=== PATIENT | female | born 1980 | race Caucasian/White ===

== ENCOUNTER → 2024-03-22 10:23 | Outpatient (CLI) | payer OTHER, SELFPAY ==
--- NOTE | 2024-03-22 | DI.US.S_ITS ---
PROCEDURE: US PELVIC COMPLETE INDICATIONS: Abnormal uterine and vaginal bleeding, unspecified TECHNIQUE: Real-time scanning was performed of the pelvic organs, with image documentation. Additional endovaginal scanning was necessary due to incomplete visualization of the adnexal and endometrial structures by transabdominal scanning. COMPARISON: None. FINDINGS: Uterus: Uterus is anteverted and normal in size at 7.7 x 3.8 x 5.1 cm. The myometrium is heterogeneous. The endometrium measures 3.2 mm combined thickness. Intrauterine device is noted within central endometrium. No endometrial mass or fluid. Ovaries: The right ovary measures 2.2 x 1.7 x 2.7 cm, with a calculated ovarian volume of 5.3 cc. The left ovary measures 3.2 x 1.4 x 1.7 cm, with a calculated ovarian volume of 4.0 cc. 1.1 x 0.8 x 1.2 cm heterogeneously hypoechoic structure is noted within left ovary without internal vascularity. Less than 12 follicles can be seen in each ovary. No adnexal masses are seen. Other: No pathologic free abdominal or pelvic fluid. IMPRESSION: 1. Intrauterine device is seen in its normal central endometrial location. No endometrial mass or fluid. 2. Normal appearing right ovary. 1.1 x 1.2 x 0.8 cm heterogeneously hypoechoic structure within left ovary which may represent a complex cyst. No significant internal vascularity is seen. Ultrasound follow-up in 4-6 weeks is recommended. We strive to produce accurate, complete, and clear reports of imaging services. To assist us in improving patient care, this report was composed using standard report templates and voice recognition software. Therefore, it may contain abnormal punctuation, insertions and/or omissions. Occasional wrong-word or sound-alike substitutions may occur. Though we review the report and make efforts to correct it, we do recommend that the report be read carefully in proper context to recognize any text inaccuracies. Dictated by: Modesto Hunt M.D. on 03/22/2024 at 16:56 Approved by: Modesto Hunt M.D. on 03/22/2024 at 16:59
== END ==
LOC: US 10:26
PROVIDERS: Family Provider Registered Nurse Women's Health Care, Ambulatory; PCP Family Medicine; Referring Provider Family Medicine; Visit Provider Family Medicine
DX: N93.9 Abnormal uterine and vaginal bleeding, unspecified (principal); Z97.5 Presence of (intrauterine) contraceptive device
CPT/HCPCS: 76830; 76856

== ENCOUNTER → 2024-06-10 07:22 | Outpatient (CLI) | payer OTHER, SELFPAY ==
--- NOTE | 2024-06-10 07:23 | DI.US.S_ITS ---
PROCEDURE: US PELVIC COMPLETE INDICATIONS: Unspecified ovarian cyst, left side TECHNIQUE: Real-time scanning was performed of the pelvic organs, with image documentation. Additional endovaginal scanning was necessary due to incomplete visualization of the adnexal and endometrial structures by transabdominal scanning. COMPARISON: [facility], US, US PELVIC COMPLETE, 03/22/2024, 10:38. FINDINGS: Uterus: Uterus is anteverted and normal in size at 9.2 x 4.1 x 5.5 cm. The myometrium is heterogenous. The endometrium measures 6 mm in combined thickness. A T-shaped intrauterine device is present in expected position. Ovaries: The right ovary measures 1.4 x 1.3 x 2.9 cm, with a calculated ovarian volume of 2.9 cc. The left ovary measures 4.4 x 1.5 x 1.8 cm, with a calculated ovarian volume of 6.4 cc. The ovaries have a normal sonographic appearance. Less than 12 follicles can be seen in each ovary. Persistent 1.3 x 1.0 x 1.1 cm hypoechoic structure with posterior acoustic enhancement and low level internal echoes within the left ovary. Other: No pathologic free abdominal or pelvic fluid. IMPRESSION: 1. Persistent 1.3 cm left ovarian hypoechoic structure, possibly representing an endometrioma. 2. No other sonographic abnormality of the uterus or ovaries. 3. Intrauterine device in expected position. We strive to produce accurate, complete, and clear reports of imaging services. To assist us in improving patient care, this report was composed using standard report templates and voice recognition software. Therefore, it may contain abnormal punctuation, insertions and/or omissions. Occasional wrong-word or sound-alike substitutions may occur. Though we review the report and make efforts to correct it, we do recommend that the report be read carefully in proper context to recognize any text inaccuracies. Dictated by: Santana Rizzo M.D. on 06/10/2024 at 12:34 Approved by: Santana Rizzo M.D. on 06/10/2024 at 12:42
== END ==
PROVIDERS: Family Provider Registered Nurse Women's Health Care, Ambulatory; PCP Family Medicine; Referring Provider Family Medicine; Visit Provider Family Medicine
DX: N83.202 Unspecified ovarian cyst, left side (principal); Z97.5 Presence of (intrauterine) contraceptive device
CPT/HCPCS: 76830; 76856